=== PATIENT | female | born 1985 | race Caucasian/White ===

== ENCOUNTER 2018-11-13 09:07 | Emergency (ER) | payer OTHER ==
[~2018-11-13] VITALS: Ht 160 cm; Wt 5.4 kg
[2018-11-13] MEDS ORDERED: predniSONE 10 MG TABLET PO ONE (10:15)
[2018-11-13] MEDS ORDERED: ALBUTEROL SULFATE 2.5 MG/3 ML NEBU NEB ONE (10:15)
[2018-11-13] MEDS ORDERED: IPRATROPIUM BROMIDE 0.5 MG/2.5 ML NEBU NEB ONE (10:15)
[2018-11-13] MEDS ORDERED: IPRATROPIUM BROMIDE 0.5 MG/2.5 ML NEBU ONE (10:19)
[2018-11-13] MEDS ORDERED: ALBUTEROL SULFATE 2.5 MG/ 0.5 ML NEBU ONE (10:19)
[2018-11-13] MEDS ORDERED: predniSONE 10 MG TABLET ONE (10:22)
[2018-11-13] MEDS ORDERED: predniSONE 50 MG TABLET ONE (10:23)
--- NOTE | 2018-11-13 10:24 | NUR ---
PATIENT HERE FOR COUGHING. NEBULIZER TX IN PROCESS... MED GIVEN ORDERED.
--- NOTE | 2018-11-13 11:33 | NUR ---
Patient discharged to home in stable conditon. Written and verbal after care instructions given. Patient verbalizes understanding of instructions.
== END 2018-11-13 11:35 | disposition home or self-care (01) ==
LOC: ER 09:07
DX: J45.909 Unspecified asthma, uncomplicated (principal); R11.10 Vomiting, unspecified; Z91.040 Latex allergy status
CPT/HCPCS: 71045; 94644; 99285; J7512 ×2; A4663; J3590